=== PATIENT | male | born 1980 | race Hispanic/Latino ===

== ENCOUNTER 2020-05-06 16:10 | Emergency (ER) | payer BC, OTHER ==
--- NOTE | 2020-05-06 17:10 | RAD REPORT ---
EXAM DESCRIPTION: Mariely Single View05/06/2020 4:55 pm CLINICAL HISTORY: Cough COMPARISON: 2014 FINDINGS: Mild left basilar opacities. Right lung appears clear. . The heart is normal size IMPRESSION: Mild left basilar opacities probably pneumonia
--- NOTE | 2020-05-06 17:45 | EDPHYS ---
Physician Documentation [facility] Name: Ramiro Yanez Age: 39 yrs Sex: Male : 1980 Arrival Date: 05/06/2020 Time: 16:12 Bed 27 Private MD: ED Physician Missael Norman HPI: 05/06 17:42 This 39 yrs old Male presents to ER via Ambulatory with complaints of snw Breathing Difficulty, COVID+. 17:42 The patient has shortness of breath with light activity. Onset: The symptoms/episode snw began/occurred gradually. Duration: The symptoms are continuous. Duration: The symptoms are continuous, and are steadily getting worse. Associated signs and symptoms: Pertinent positives: non-productive cough, fever. Severity of symptoms: At their worst the symptoms were moderate. The patient has not experienced similar symptoms in the past. dx CoVid 19 on . Historical: - Allergies: 16:23 No Known Allergies; ss - Home Meds: 16:23 None [Active]; ss - PMHx: 16:23 None; ss - PSHx: 16:23 None; ss - Immunization history:: Adult Immunizations up to date. - Social history:: Smoking status: Patient denies any tobacco usage or history of. ROS: 17:41 Eyes: Negative for injury, pain, redness, and discharge, ENT: Negative for injury, snw pain, and discharge, Neck: Negative for injury, pain, and swelling, Cardiovascular: Negative for chest pain, palpitations, and edema. 17:41 Back: Negative for injury and pain, : Negative for injury, bleeding, discharge, and swelling, MS/Extremity: Negative for injury and deformity, Skin: Negative for injury, rash, and discoloration, Neuro: Negative for headache, weakness, numbness, tingling, and seizure. 17:41 Constitutional: Positive for body aches, fever, malaise. 17:41 Respiratory: Positive for cough, shortness of breath. 17:41 Abdomen/GI: Positive for diarrhea. Exam: 17:41 Head/Face: Normocephalic, atraumatic. Eyes: Pupils equal round and reactive to light, snw extra-ocular motions intact. Lids and lashes normal. Conjunctiva and sclera are non-icteric and not injected. Cornea within normal limits. Periorbital areas with no swelling, redness, or edema. ENT: Nares patent. No nasal discharge, no septal abnormalities noted. Tympanic membranes are normal and external auditory canals are clear. Oropharynx with no redness, swelling, or masses, exudates, or evidence of obstruction, uvula midline. Mucous membranes moist. Neck: Trachea midline, no thyromegaly or masses palpated, and no cervical lymphadenopathy. Supple, full range of motion without nuchal rigidity, or vertebral point tenderness. No Meningismus. Chest/axilla: Normal chest wall appearance and motion. Nontender with no deformity. No lesions are appreciated. Cardiovascular: Regular rate and rhythm with a normal S1 and S2. No gallops, murmurs, or rubs. Normal PMI, no JVD. No pulse deficits. 17:41 Back: No spinal tenderness. No costovertebral tenderness. Full range of motion. Skin: Warm, dry with normal turgor. Normal color with no rashes, no lesions, and no evidence of cellulitis. MS/ Extremity: Pulses equal, no cyanosis. Neurovascular intact. Full, normal range of motion. Neuro: Awake and alert, GCS 15, oriented to person, place, time, and situation. Cranial nerves II-XII grossly intact. Motor strength 5/5 in all extremities. Sensory grossly intact. Cerebellar exam normal. Normal gait. 17:41 Constitutional: The patient appears alert, awake, anxious, uncomfortable. 17:41 Respiratory: the patient does not display signs of respiratory distress, Respirations: normal, Breath sounds: are clear throughout, incessant cough. 17:41 Abdomen/GI: Exam negative for Vital Signs: 16:19 Resp 19; Temp 98.8(TE); Pulse Ox 96% on R/A; Weight 117.93 kg; Height 5 ft. 10 in. ss (177.80 cm); Pain 0/10; 18:24 BP 128 / 70; Pulse 89; Resp 19; Temp 97.9(O); Pulse Ox 97% on R/A; Pain 0/10; ls4 16:19 Body Mass Index 37.31 (117.93 kg, 177.80 cm) MDM: 17:44 Patient medically screened. snw 18:10 Data reviewed: vital signs, nurses notes. Data interpreted: Pulse oximetry: on room air snw is 96 %. Interpretation: acceptable. Counseling: I had a detailed discussion with the patient and/or guardian regarding: the historical points, exam findings, and any diagnostic results supporting the discharge/admit diagnosis, radiology results, the need for outpatient follow up, to return to the emergency department if symptoms worsen or persist or if there are any questions or concerns that arise at home. 05/06 16:32 Order name: XRAY Chest (1 view); Complete Time: 17:15 ls4 Administered Medications: 17:52 Drug: Decadron 10 mg Route: IM; Site: right deltoid; ls4 17:58 Drug: Tussionex Pennkinetic ER 5 ml Route: PO; ls4 17:58 Drug: Zithromax 500 mg Route: PO; ls4 Disposition: 19:42 Co-signature as Attending Physician, Missael Norman MD I agree with the assessment and kdr plan of care. Disposition: 05/06/20 17:44 Discharged to Home. Impression: Pneumonia due to SARS-associated coronavirus. - Condition is Stable. - Discharge Instructions: Rehydration, Adult, COVID-19. - Prescriptions for Prednisone 20 mg Oral Tablet - take 2 tablet by ORAL route once daily for 5 days; 10 tablet. Albuterol Sulfate 90 mcg/actuation - inhale 1-2 puff by INHALATION route every 4-6 hours; 1 Inhaler. Zithromax 500 mg Oral Tablet - take 1 tablet by ORAL route once daily for 5 days; 5 tablet. - Medication Reconciliation Form, Thank You Letter, Antibiotic Education, Prescription Opioid Use form. - Follow up: Emergency Department; When: As needed; Reason: Worsening of condition. Follow up: Private Physician; When: 2 - 3 days; Reason: Recheck today's complaints, Continuance of care, Re-evaluation by your physician. - Notes: Zinc 100mg orally daily x 2 weeks, Tonic water 4-6 oz daily x 2 weeks, drinkwith a source of vitamin C Signatures: Dispatcher [employer] Missael Flores MD MD kdr Waters, Shelly, STITCHER HAND-C STITCHER [employer]-Csnw Joycelyn Villalba RN RN ss Marylou De La Cruz RN RN ls4 Corrections: (The following items were deleted from the chart) 16:39 16:36 Chest Single View+RAD.RAD.BRZ ordered. [facility] 18:26 17:44 05/06/2020 17:44 Discharged to Home. Impression: Pneumonia due to SARS-associated ls4 coronavirus. Condition is Stable. Forms are Medication Reconciliation Form, Thank You Letter, Antibiotic Education, Prescription Opioid Use. Follow up: Emergency Department; When: As needed; Reason: Worsening of condition. Follow up: Private Physician; When: 2 - 3 days; Reason: Recheck today's complaints, Continuance of care, Re-evaluation by your physician. snmiller
--- NOTE | 2020-05-06 17:45 | ER ---
Nurse's Notes [facility] Name: Ramiro Yanez Age: 39 yrs Sex: Male : 1980 Arrival Date: 05/06/2020 Time: 16:12 Bed 27 Private MD: Diagnosis: Pneumonia due to SARS-associated coronavirus Presentation: 05/06 16:19 Chief complaint: Patient states: Tested + for COVID-19 on Saturday. Pt is concerned ss because his SOB is getting worse and is unsure if what he is doing at home is appropriate for his treatment. Coronavirus screen:. Ebola Screen: Patient denies exposure to infectious person. Patient denies travel to an Ebola-affected area in the 21 days before illness onset. Initial Sepsis Screen: Does the patient meet any 2 criteria? No. Patient's initial sepsis screen is negative. Does the patient have a suspected source of infection? No. Patient's initial sepsis screen is negative. Risk Assessment: Do you want to hurt yourself or someone else? Patient reports no desire to harm self or others. Onset of symptoms was April 30, 2020. 16:19 Method Of Arrival: Ambulatory ss 16:19 Acuity: MARAL 4 ss Triage Assessment: 16:34 General: Appears in no apparent distress. Behavior is calm, cooperative. Pain: Denies ls4 pain. Respiratory: Reports shortness of breath at rest Onset: The symptoms/episode began/occurred gradually, the patient has mild shortness of breath. Historical: - Allergies: 16:23 No Known Allergies; ss - Home Meds: 16:23 None [Active]; ss - PMHx: 16:23 None; ss - PSHx: 16:23 None; ss - Immunization history:: Adult Immunizations up to date. - Social history:: Smoking status: Patient denies any tobacco usage or history of. Screenin:33 Abuse screen: Denies threats or abuse. Denies injuries from another. Nutritional ls4 screening: No deficits noted. Tuberculosis screening: No symptoms or risk factors identified. Fall Risk None identified. Assessment: 16:28 Cardiovascular: Denies chest pain, Rhythm is regular. Respiratory: Reports shortness of ls4 breath on exertion cough that is non-productive, dry, hacking, Airway is patent Respiratory effort is even, labored, Respiratory pattern is regular, Breath sounds are clear bilaterally. the patient has mild shortness of breath. Derm: Skin is intact, Skin is dry, Skin is pink, warm \T\ dry. 17:25 Reassessment: Patient appears in no apparent distress at this time. Patient and/or ls4 family updated on plan of care and expected duration. Pain level reassessed. Patient is alert, oriented x 3, equal unlabored respirations, skin warm/dry/pink. 18:26 Reassessment: Patient appears in no apparent distress at this time. Patient and/or ls4 family updated on plan of care and expected duration. Pain level reassessed. Patient is alert, oriented x 3, equal unlabored respirations, skin warm/dry/pink. Vital Signs: 16:19 Resp 19; Temp 98.8(TE); Pulse Ox 96% on R/A; Weight 117.93 kg; Height 5 ft. 10 in. ss (177.80 cm); Pain 0/10; 18:24 BP 128 / 70; Pulse 89; Resp 19; Temp 97.9(O); Pulse Ox 97% on R/A; Pain 0/10; ls4 16:19 Body Mass Index 37.31 (117.93 kg, 177.80 cm) ED Course: 16:12 Patient arrived in ED. ag5 16:22 Triage completed. ss 16:23 Arm band placed on right wrist. ss 16:24 Sona Pryor FNP-C is PHCP. snw 16:24 Missael Norman MD is Attending Physician. snw 16:31 Marylou De La Cruz RN is Primary Nurse. ls4 16:33 No apparent distress. ls4 16:33 Patient has correct armband on for positive identification. Bed in low position. Call ls4 light in reach. Side rails up X 1. Pulse ox on. NIBP on. Verbal reassurance given. 16:33 No provider procedures requiring assistance completed. Patient maintains SpO2 ls4 saturation greater than 95% on room air. 16:59 XRAY Chest (1 view) In Process Unspecified. EDMS 18:26 Patient did not have IV access during this emergency room visit. ls4 Administered Medications: 17:52 Drug: Decadron 10 mg Route: IM; Site: right deltoid; ls4 17:58 Drug: Tussionex Pennkinetic ER 5 ml Route: PO; ls4 17:58 Drug: Zithromax 500 mg Route: PO; ls4 Outcome: 17:44 Discharge ordered by MD. hernandes 18:26 Discharged to home ambulatory. ls4 18: Condition: good 18:26 Discharge instructions given to Instructed on Demonstrated understanding of 18:26 Patient left the ED. ls4 Signatures: Dispatcher [employer] EDMS Sona Pryor, FORESTRY CONSERVATION WORKER-C FORESTRY CONSERVATION WORKER-Csnw Joycelyn Villalba RN RN ss Stewart, Lisa, RN RN ls4 Flaco Santiago ag5 Corrections: (The following items were deleted from the chart) 18: 16:33 Respiratory: Airway is patent ls4 ls4 18:25 16:34 Respiratory: ls4 ls4
[2020-05-06] MEDS ORDERED: AZITHROMYCIN 250 MG TAB ONE (17:57)
[2020-05-06] MEDS ORDERED: HYDROCODONE/CHLORPHEN 5 ML/OSYR ONE (17:58)
[2020-05-06] MEDS ORDERED: dexAMETHasone 10 MG/ML VIAL ONE (17:58)
[2020-05-06 18:33] VITALS: BP 128/70; TEMP 97.9; O2SAT 97
== END 2020-05-06 18:26 | disposition home or self-care (01) ==
LOC: ER 16:10
DX: J12.81 Pneumonia due to SARS-associated coronavirus (principal)
CPT/HCPCS: 71045; 96372; 99284; J1100

== ENCOUNTER 2020-05-08 07:51 | Inpatient (IN) | payer BC, OTHER ==
[2020-05-08] MEDS ORDERED: dexAMETHasone 10 MG/ML VIAL ONE (08:40)
[2020-05-08] MEDS ORDERED: THIAMINE 200 MG/2 ML INJ ONE (08:40)
[2020-05-08] MEDS ORDERED: NA CHLORIDE 0.9% 2,000 ML ONE (08:41)
[2020-05-08] MEDS ORDERED: FOLIC ACID 5 MG/ML VIAL ONE (08:42)
[2020-05-08] MEDS ORDERED: CEFTRIAXONE/SWI 1gm 1 GM/10 ML SYR ONE (08:42)
[2020-05-08] MEDS ORDERED: ALBUTEROL INHALER 60 PUFF/8 GM IH ONE (08:42)
[2020-05-08] MEDS ORDERED: AZITHROMYCIN IV 500 MG in NA CHLORIDE 0.9% 250 ML IVPB ONE (09:00)
[2020-05-08] MEDS ORDERED: ZINC SULFATE 220 MG CAP PO ONE (09:00)
[2020-05-08 09:10] LABS: Absolute Lymphocytes (CBC) 1.2 K/uL (0.7-4.9); Basophils % 0.4 % (0-1.3); Hematocrit 44.1 % (39.6-49.0); Lymphocytes % 11.7 % (15.3-44.8); MPV 9.7 fL (7.6-11.3); RBC Red Blood Cell Count 4.83 M/uL (4.33-5.43)
--- NOTE | 2020-05-08 09:19 | ER ---
Nurse's Notes [facility] Name: Ramiro Yanez Age: 39 yrs Sex: Male : 1980 Arrival Date: 05/08/2020 Time: 07:52 Bed 6 Private MD: Diagnosis: Pneumonia due to other specified bacteria;SARS-associated coronavirus as the cause of diseases classified elsewhere-covid 19 positive;Other specified heart block-mobitz 2 Presentation: 05/08 07:53 Chief complaint: EMS states: Positive COVID test from here on Saturday. Pt woke with jl7 SOB. O2 90%, placed on non-rebreather and came up to 97%. Coronavirus screen: Patient reports a cough. Patient reports shortness of breath or difficulty breathing. Patient denies measured and/or subjective temperature greater than 100.4F prior to today's visit. Patient denies travel on a cruise ship or to a country the [facility] [place] 2[place] currently lists as an affected area. Patient reports contact with known and/or suspected case of COVID-19. Patient instructed to continue to wear a mask when interacting with others. Patient moved to private room, placed in contact and droplet isolation with eye protection until further assessment. Ebola Screen: No symptoms or risks identified at this time. Initial Sepsis Screen: Does the patient meet any 2 criteria? No. Patient's initial sepsis screen is negative. Does the patient have a suspected source of infection? No. Patient's initial sepsis screen is negative. Risk Assessment: Do you want to hurt yourself or someone else? Patient reports no desire to harm self or others. Onset of symptoms was May 08, 2020. Care prior to arrival: None. Transition of care: patient was not received from another setting of care. 07:53 Method Of Arrival: EMS: [facility] 7 07:53 Acuity: MARAL 2 jl7 Triage Assessment: 07:57 General: Appears in no apparent distress. uncomfortable, Behavior is cooperative, jl7 anxious. Pain: Denies pain. Neuro: Level of Consciousness is awake, alert, obeys commands, Oriented to person, place, time, situation. Cardiovascular: Reports shortness of breath, Patient's skin is warm and dry. Respiratory: Reports shortness of breath at rest Onset: The symptoms/episode began/occurred this morning, the patient has moderate shortness of breath. GI: Derm: Skin is pink, warm \T\ dry. Historical: - Allergies: 07:57 No Known Allergies; - Home Meds: 07:57 None [Active]; jl7 - PMHx: 07:57 None; 7 - PSHx: 07:57 None; jl7 - Immunization history:: Adult Immunizations unknown. - Social history:: Smoking status: Patient denies any tobacco usage or history of. Screenin:00 Abuse screen: Denies threats or abuse. Denies injuries from another. Nutritional bp screening: No deficits noted. Tuberculosis screening: No symptoms or risk factors identified. Fall Risk None identified. Assessment: 08:00 General: SEE TRIAGE NOTE. bp 09:00 Cardiovascular: Rhythm is sinus rhythm. Respiratory: Reports shortness of breath cough bp that is Airway is patent Respiratory effort is even, unlabored, Breath sounds are coarse bilaterally. 09:30 Reassessment: HOSPITALIST AT B/S, ADMIT INITIATED. bp 10:39 Reassessment: REPEAT EKG COMPLETED. 2ND DEGREE AV BLOCK NOTED, MD NOTIFIED. bp 12:15 Reassessment: BED ASSIGNED, ADMIT ON HOLD FOR STAFFING. bp 13:11 Reassessment: ADMIT COMPLETE, PT HEYDI WITH PCT. bp Vital Signs: 07:53 BP 157 / 91; Pulse 99; Resp 26; Temp 99.6; Pulse Ox 100% on Non-rebreather mask; jl7 08:00 BP 148 / 89; Pulse 93; Resp 25; Pulse Ox 100% on 12% Non-rebreather mask; bp 09:00 BP 137 / 95; Pulse 96; Resp 24; Temp 98.2; Pulse Ox 100% ; bp 10:01 BP 133 / 81; Pulse 126; Resp 24; Pulse Ox 93% on 2 lpm NC; bp 11:00 BP 112 / 78; Pulse 79; Resp 23; Pulse Ox 98% on 2 lpm NC; bp 12:00 BP 111 / 67; Pulse 74; Resp 26; Pulse Ox 98% on 2 lpm NC; bp 12:52 BP 121 / 78; Pulse 78; Resp 24; Pulse Ox 96% on 2 lpm NC; 7 ED Course: 07:52 Patient arrived in ED. jl7 07:55 Osmel Reese, RN is Primary Nurse. bp 07:56 Triage completed. jl7 07:57 Arm band placed on right wrist. jl7 08:02 Elias Adams MD is Attending Physician. sergio 08:18 EKG done, by ED staff, reviewed by Elias Adams MD. mh5 08:19 Patient has correct armband on for positive identification. Placed in gown. Bed in low mh5 position. Call light in reach. Side rails up X 1. Pillow given. ekg monitor on. Pulse ox on. NIBP on. 08:50 Inserted saline lock: 20 gauge in right forearm, using aseptic technique. Blood bp collected. 09:17 Jorge Hennessy MD is Hospitalizing Provider. sergio 09:19 XRAY Chest (1 view) In Process Unspecified. EDMS 09:19 INCENTIVE SPIROMETRY Sent. bp 12:52 No provider procedures requiring assistance completed. Patient admitted, IV remains in jl7 place. intact, No redness/swelling at site. Administered Medications: 08:50 Drug: NS 0.9% 1000 ml Route: IV; Rate: 1 bolus; Site: right forearm; bp 11:14 Follow up: IV Status: Completed infusion; IV Intake: 1000ml bp 08:50 Drug: Decadron - Dexamethasone 10 mg Route: IVP; Site: right forearm; bp 09:38 Follow up: Response: Marked relief of symptoms bp 08:50 Drug: Rocephin 1 grams Route: IV; Rate: per protocol; Site: right forearm; bp 09:39 Follow up: IV Status: Completed infusion; IV Intake: 50ml bp 08:50 Drug: Albuterol HFA Inhaler 4 puffs Route: Inhalation; bp 08:50 Drug: Thiamine 100 mg Route: IV; Rate: per protocol; Site: right forearm; bp 09:39 Follow up: IV Status: Completed infusion; IV Intake: 50ml bp 08:50 Drug: foLIC Acid 1 mg Route: IVPB; Site: right forearm; bp 09:38 Follow up: IV Status: Completed infusion; IV Intake: 50ml bp 08:50 Drug: NS 0.9% 1000 ml Route: IV; Rate: 125 ml/hr; Site: right forearm; bp 11:14 Follow up: IV Status: Infusion continued upon admission bp 09:30 Drug: Zithromax 500 mg Route: IVPB; Infused Over: 1 hrs; Site: right forearm; bp 10:15 Follow up: IV Status: Completed infusion; IV Intake: 250ml bp 09:30 Drug: Zinc Sulfate 220 mg Route: PO; bp 09:41 Follow up: Response: No adverse reaction bp 09:30 Drug: Tussionex Pennkinetic ER 5 ml Route: PO; bp 09:40 Follow up: Response: Marked relief of symptoms bp 09:30 Drug: Lovenox 40 mg Route: Sub-Q; Site: right lower abdomen; bp 09:41 Follow up: Response: No adverse reaction bp 10:20 Drug: Pepcid 20 mg Route: IVP; Site: right forearm; bp 10:37 Follow up: Response: No adverse reaction bp Intake: 09:38 IV: 50ml; Total: 50ml. bp 09:39 IV: 50ml; Total: 100ml. bp 09:39 IV: 50ml; Total: 150ml. bp 10:15 IV: 250ml; Total: 400ml. bp 11:14 IV: 1000ml; Total: 1400ml. bp Outcome: 09:18 Decision to Hospitalize by Provider. sergio 13:10 Admitted to Tele accompanied by tech, via wheelchair, room 415, with oxygen, with bp chart, Report called to ASAF RODRIGUEZ 13:10 Condition: stable 13:10 Instructed on the need for admit. 13:26 Patient left the ED. bp Signatures: Dispatcher [employer] EDElias Stevenson MD MD cha Martinez, [facility] Burt Gupta, RN RN jl7 Osmel Reese RN RN bp Corrections: (The following items were deleted from the chart) 09:20 09:00 BP 137 / 95; Pulse 96bpm; Resp 24bpm; Pulse Ox 100%; bp bp
--- NOTE | 2020-05-08 09:19 | EDPHYS ---
Physician Documentation [facility] Name: Ramiro Yanez Age: 39 yrs Sex: Male : 1980 Arrival Date: 05/08/2020 Time: 07:52 Bed 6 Private MD: ED Physician Elias Adams HPI: 05/08 08:20 This 39 yrs old Male presents to ER via EMS with complaints of Shortness Of sergio Breath, COVID +. 08:20 The patient has shortness of breath at rest, with light activity. Onset: The sergio symptoms/episode began/occurred 3 day(s) ago. Duration: The symptoms are continuous, and are steadily getting worse. The patient's shortness of breath is aggravated by coughing, exertion, light activity. Associated signs and symptoms: Pertinent positives: non-productive cough. Severity of symptoms: At their worst the symptoms were moderate in the emergency department the symptoms are unchanged. The patient has experienced a previous episode, last week. Historical: - Allergies: 07:57 No Known Allergies; jl7 - Home Meds: 07:57 None [Active]; jl7 - PMHx: 07:57 None; jl7 - PSHx: 07:57 None; jl7 - Immunization history:: Adult Immunizations unknown. - Social history:: Smoking status: Patient denies any tobacco usage or history of. ROS: 08:23 Eyes: Negative for injury, pain, redness, and discharge, ENT: Negative for injury, sergio pain, and discharge, Neck: Negative for injury, pain, and swelling, Cardiovascular: Negative for chest pain, palpitations, and edema, Abdomen/GI: Negative for abdominal pain, nausea, vomiting, diarrhea, and constipation, Back: Negative for injury and pain, : Negative for injury, bleeding, discharge, and swelling, MS/Extremity: Negative for injury and deformity, Skin: Negative for injury, rash, and discoloration, Neuro: Negative for headache, weakness, numbness, tingling, and seizure, Psych: Negative for depression, anxiety, suicide ideation, homicidal ideation, and hallucinations, Allergy/Immunology: Negative for hives, rash, and allergies, Endocrine: Negative for neck swelling, polydipsia, polyuria, polyphagia, and marked weight changes, Hematologic/Lymphatic: Negative for swollen nodes, abnormal bleeding, and unusual bruising. 08:23 Constitutional: Positive for body aches, chills, fatigue, fever, malaise, poor PO intake. 08:23 Respiratory: Positive for cough, shortness of breath, wheezing, expiratory. Exam: 08:23 Head/Face: Normocephalic, atraumatic. Eyes: Pupils equal round and reactive to light, sergio extra-ocular motions intact. Lids and lashes normal. Conjunctiva and sclera are non-icteric and not injected. Cornea within normal limits. Periorbital areas with no swelling, redness, or edema. ENT: Nares patent. No nasal discharge, no septal abnormalities noted. Tympanic membranes are normal and external auditory canals are clear. Oropharynx with no redness, swelling, or masses, exudates, or evidence of obstruction, uvula midline. Mucous membranes moist. Neck: Trachea midline, no thyromegaly or masses palpated, and no cervical lymphadenopathy. Supple, full range of motion without nuchal rigidity, or vertebral point tenderness. No Meningismus. Chest/axilla: Normal chest wall appearance and motion. Nontender with no deformity. No lesions are appreciated. Abdomen/GI: Soft, non-tender, with normal bowel sounds. No distension or tympany. No guarding or rebound. No evidence of tenderness throughout. Back: No spinal tenderness. No costovertebral tenderness. Full range of motion. Male : Normal genitalia with no discharge or lesions. Skin: Warm, dry with normal turgor. Normal color with no rashes, no lesions, and no evidence of cellulitis. MS/ Extremity: Pulses equal, no cyanosis. Neurovascular intact. Full, normal range of motion. Neuro: Awake and alert, GCS 15, oriented to person, place, time, and situation. Cranial nerves II-XII grossly intact. Motor strength 5/5 in all extremities. Sensory grossly intact. Cerebellar exam normal. Normal gait. Psych: Awake, alert, with orientation to person, place and time. Behavior, mood, and affect are within normal limits. 08:23 Cardiovascular: Rate: tachycardic, Rhythm: irregular, Pulses: Pulses are 4+ in bilateral radial, brachial, femoral, popliteal, posterior tibial and and dorsalis pedis arteries.. Heart sounds: normal, Edema: is not appreciated, JVD: is not appreciated. 08:26 Musculoskeletal/extremity: DVT Exam: No signs of deep vein thrombosis. no pain, no sergio swelling, no tenderness, negative Homans' sign noted on exam, no appreciated bluish discoloration, no erythema, no increased warmth. 08:28 ECG was reviewed by the Attending Physician. [facility] Vital Signs: 07:53 BP 157 / 91; Pulse 99; Resp 26; Temp 99.6; Pulse Ox 100% on Non-rebreather mask; jl7 08:00 BP 148 / 89; Pulse 93; Resp 25; Pulse Ox 100% on 12% Non-rebreather mask; bp 09:00 BP 137 / 95; Pulse 96; Resp 24; Temp 98.2; Pulse Ox 100% ; bp 10:01 BP 133 / 81; Pulse 126; Resp 24; Pulse Ox 93% on 2 lpm NC; bp 11:00 BP 112 / 78; Pulse 79; Resp 23; Pulse Ox 98% on 2 lpm NC; bp 12:00 BP 111 / 67; Pulse 74; Resp 26; Pulse Ox 98% on 2 lpm NC; bp 12:52 BP 121 / 78; Pulse 78; Resp 24; Pulse Ox 96% on 2 lpm NC; jl7 MDM: 08:02 Patient medically screened. [facility] 08:24 Differential diagnosis: asthma, Bronchitis CHF exacerbation, Chronic Obstructive sergio Pulmonary Disease obstructed airway, bronchitis, flu, URI, pneumonia, pulmonary edema, Pulmonary Embolism reactive airway disease. Antibiotic administration: Rocephin and Zithromax given. The patient's Wells Deep Vein Thrombosis Score was calculated as follows: Heart Rate >100 BPM (1.5 Pts) Total Score: 0-2 Pts- Low Risk. Differential Diagnosis: Obstructed Airway Bronchitis Influenza Upper Respiratory Infection Asthma Exacerbation Pneumonia. The patient's pulmonary embolism risk score was calculated as follows: the patients heart rate is greater than 100 beats per minute (1.5 Pts) Total Score: 0-2 points. This patient was found to be at low risk for a pulmonary embolism by using the Well's assessment criteria. Immunization status:. Data reviewed: vital signs, nurses notes, lab test result(s), EKG, radiologic studies, plain films. Data interpreted: child monitor: rate is 99 beats/min, rhythm is irregular, Pulse oximetry: on 100 % NRB is 100 %. Test interpretation: by ED physician or midlevel provider: ECG, plain radiologic studies. 09:15 Medication response: improved with inhalers, steroids, fluids, tylenol. ED course: pt sergio slightly improved, will admit dr fox. 05/08 08:20 Order name: Basic Metabolic Panel; Complete Time: 09:42 [facility] 05/08 08:20 Order name: CBC with Diff; Complete Time: 09:13 [facility] 05/08 08:20 Order name: LFT's; Complete Time: 09:42 [facility] 05/08 08:20 Order name: Magnesium; Complete Time: 09:42 [facility] 05/08 08:20 Order name: NT PRO-BNP; Complete Time: 09:42 [facility] 05/08 08:20 Order name: Troponin (emerg Dept Use Only); Complete Time: 09:42 [facility] 05/08 08:20 Order name: XRAY Chest (1 view) 05/08 08:20 Order name: Blood Culture Adult (2) 05/08 08:20 Order name: Lactate; Complete Time: 09:42 [facility] 05/08 08:20 Order name: Procalcitonin 05/08 08:20 Order name: Influenza Screen (a \T\ B); Complete Time: 09:42 [facility] 05/08 08:20 Order name: D-Dimer; Complete Time: 09:13 [facility] 05/08 09:13 Order name: INCENTIVE SPIROMETRY 05/08 08:20 Order name: EKG; Complete Time: 08:21 [facility] 05/08 08:20 Order name: Cardiac monitoring; Complete Time: 09:41 [facility] 05/08 08:20 Order name: EKG - Nurse/Tech; Complete Time: 08:22 [facility] 05/08 08:20 Order name: IV Saline Lock; Complete Time: 09:41 [facility] 05/08 10:38 Order name: EKG; Complete Time: 10:39 bp 05/08 08:20 Order name: Labs collected and sent; Complete Time: 09:41 [facility] 05/08 08:20 Order name: O2 Per Protocol; Complete Time: 08:22 [facility] 05/08 08:20 Order name: O2 Sat Monitoring; Complete Time: 08:22 [facility] 05/08 10:38 Order name: EKG - Nurse/Tech; Complete Time: 10:38 bp EC:28 Rhythm is irregular. QRS [place] is Normal. [place] interval is normal. QRS interval is normal. sergio QT interval is normal. No Q waves. T waves are Inverted. No ST changes noted. Clinical impression: NSR w/ Non-specific ST/T Changes and No evidence of ischemia. Interpreted by me. Reviewed by me. Administered Medications: 08:50 Drug: NS 0.9% 1000 ml Route: IV; Rate: 1 bolus; Site: right forearm; bp 11:14 Follow up: IV Status: Completed infusion; IV Intake: 1000ml bp 08:50 Drug: Decadron - Dexamethasone 10 mg Route: IVP; Site: right forearm; bp 09:38 Follow up: Response: Marked relief of symptoms bp 08:50 Drug: Rocephin 1 grams Route: IV; Rate: per protocol; Site: right forearm; bp 09:39 Follow up: IV Status: Completed infusion; IV Intake: 50ml bp 08:50 Drug: Albuterol HFA Inhaler 4 puffs Route: Inhalation; bp 08:50 Drug: Thiamine 100 mg Route: IV; Rate: per protocol; Site: right forearm; bp 09:39 Follow up: IV Status: Completed infusion; IV Intake: 50ml bp 08:50 Drug: foLIC Acid 1 mg Route: IVPB; Site: right forearm; bp 09:38 Follow up: IV Status: Completed infusion; IV Intake: 50ml bp 08:50 Drug: NS 0.9% 1000 ml Route: IV; Rate: 125 ml/hr; Site: right forearm; bp 11:14 Follow up: IV Status: Infusion continued upon admission bp 09:30 Drug: Zithromax 500 mg Route: IVPB; Infused Over: 1 hrs; Site: right forearm; bp 10:15 Follow up: IV Status: Completed infusion; IV Intake: 250ml bp 09:30 Drug: Zinc Sulfate 220 mg Route: PO; bp 09:41 Follow up: Response: No adverse reaction bp 09:30 Drug: Tussionex Pennkinetic ER 5 ml Route: PO; bp 09:40 Follow up: Response: Marked relief of symptoms bp 09:30 Drug: Lovenox 40 mg Route: Sub-Q; Site: right lower abdomen; bp 09:41 Follow up: Response: No adverse reaction bp 10:20 Drug: Pepcid 20 mg Route: IVP; Site: right forearm; bp 10:37 Follow up: Response: No adverse reaction bp Disposition: 05/08/20 09:18 Hospitalization ordered by Jorge Fox for Inpatient Admission. Preliminary diagnosis are Pneumonia due to other specified bacteria, SARS-associated coronavirus as the cause of diseases classified elsewhere - covid 19 positive, Other specified heart block - mobitz 2. - Bed requested for Telemetry/MedSurg (Inpatient). - Status is Inpatient Admission. bp - Condition is Fair. - Problem is an ongoing problem. - Symptoms have worsened. Signatures: Dispatcher [employer] EDMS Elias Adams MD MD cha Leal, Jahala, RN RN jl7 Osmel Reese RN RN Noemi White Corrections: (The following items were deleted from the chart) 10:02 09:18 Hospitalization Ordered by Jorge Fox MD for Inpatient Admission. Preliminary sergio diagnosis is Pneumonia due to other specified bacteria; SARS-associated coronavirus as the cause of diseases classified elsewhere - covid 19 positive. Bed requested for Telemetry/MedSurg (Inpatient). Status is Inpatient Admission. Condition is Fair. Problem is an ongoing problem. Symptoms have worsened. sergio 11:50 10:02 05/08/2020 09:18 Hospitalization Ordered by Jorge Fox MD for Inpatient eb Admission. Preliminary diagnosis is Pneumonia due to other specified bacteria; SARS-associated coronavirus as the cause of diseases classified elsewhere - covid 19 positive; Other specified heart block - mobitz 2. Bed requested for Telemetry/MedSurg (Inpatient). Status is Inpatient Admission. Condition is Fair. Problem is an ongoing problem. Symptoms have worsened. sergio 13:26 11:50 05/08/2020 09:18 Hospitalization Ordered by Jorge Fox MD for Inpatient bp Admission. Preliminary diagnosis is Pneumonia due to other specified bacteria; SARS-associated coronavirus as the cause of diseases classified elsewhere - covid 19 positive; Other specified heart block - mobitz 2. Bed requested for Telemetry/MedSurg (Inpatient). Status is Inpatient Admission. Condition is Fair. Problem is an ongoing problem. Symptoms have worsened. eb
[2020-05-08 09:26] LABS: ALT/SGPT 62 U/L (12-78); AST/SGOT 53 U/L (15-37); Albumin 3.3 g/dL (3.4-5.0); Alkaline Phosphatase 67 U/L (45-117); BUN Blood Urea Nitrogen 15 mg/dL (7-18); Bicarbonate 26 mmol/L (21-32); Bilirubin Direct 0.3 mg/dL (0-0.2); Bilirubin Total 0.7 mg/dL (0.2-1.0); Glucose Level 101 mg/dL (74-106); Magnesium 2.4 mg/dL (1.8-2.4); NT PRO-BNP 120 pg/mL (<125); Potassium 3.6 mmol/L (3.5-5.1); Protein, Total 8.5 g/dL (6.4-8.2); Sodium Level 140 mmol/L (136-145); Troponin (Emerg Dept Use Only) < 0.02 ng/mL (0.0-0.045)
[2020-05-08] MEDS ORDERED: HYDROCODONE/CHLORPHEN 5 ML/OSYR ONE (09:27)
[2020-05-08] MEDS ORDERED: FAMOTIDINE 20 MG/2 ML VIAL IV ONE (10:27)
[2020-05-08] MEDS ORDERED: ENOXAPARIN 40 MG/0.4 ML SQ ONE (10:27)
--- NOTE | 2020-05-08 10:45 | RAD REPORT ---
EXAM DESCRIPTION: Mariely Single View05/08/2020 9:19 am CLINICAL HISTORY: Shortness of breath COMPARISON: May 06 FINDINGS: Right lung base has become hazy No change in mild left basilar opacities Heart is normal size IMPRESSION: Right lung base has become hazy probably mild pneumonia No change mild left basilar opacities
--- NOTE | 2020-05-08 10:47 | P.HP ---
Certification for Inpatient Patient admitted to: Inpatient With expected LOS: >2 Midnights Patient will require the following post-hospital care: None Practitioner: I am a practitioner with admitting privileges, knowledge of patient current condition, hospital course, and medical plan of care. Services: Services provided to patient in accordance with Admission requirements found in Title 42 Section 412.3 of the Code of Federal Regulations <Francesco Espana - Last Filed: 05/08/20 10:41> Patient History Date of Service: 05/08/20 Primary Care Provider: none Reason for admission: Viral pneumonia with hypoxia History of Present Illness: 39-year-old otherwise healthy male presents emergency department for worsening shortness of breath. Patient reports that he was diagnosed with COVID earlier this week. Patient reports that he has a pulse oximeter has been checking his saturations daily at home. Patient reports that for last couple days his saturations have been around 92 93 but today with exertion has saturation drops into the 80s and he could not catch his breath. The patient presented the emergency department for shortness of breath. Patient's room air saturations are in the 80s and he was dyspneic and tachypneic. ED provider wishes to admit patient for further evaluation and management. When I saw the patient in the emergency room he was having a persistent dry cough, he is short of breath, dyspneic, tachypneic. Patient is tolerating nasal cannula 4 L at this time. Saturations are 92%. Also noted on monitor patient appeared to be an second-degree type 2 heart block. This is new for him had no previous knowledge. Patient be admitted for further evaluation and management. Will consult cardiology and pulmonology. - Past Medical/Surgical History Diabetic: No -: none -: none Psychosocial/ Personal History: Patient lives at home with his and children. - Family History Family History: Reviewed- Non-Contributory - Social History Smoking Status: Never smoker Alcohol use: Yes CD- Drugs: No Caffeine use: Yes Place of Residence: Home <Francesco Espana - Last Filed: 05/08/20 10:41> Date of Service: 05/08/20 <Krunal Hennessy - Last Filed: 05/08/20 11:32> Allergies No Known Drug Allergies Allergy (Unverified 11/05/14 12:31) Unknown Review of Systems General: Weakness, Malaise Respiratory: Cough, Dry, Shortness of Breath <Francesco Espana - Last Filed: 05/08/20 10:41> Physical Examination - Physical Exam General: Alert, In no apparent distress, Oriented x3 HEENT: Atraumatic, Normocephalic Neck: Supple, 2+ carotid pulse no bruit, No LAD, Without JVD or thyroid abnormality Respiratory: Diminished, Other (Coarse bilaterally) Cardiovascular: Normal S1 S2, Other (Appears to be in second-degree type 2 av block.), Irregular heart rate/rhythm Capillary refill: <2 Seconds Gastrointestinal: Normal bowel sounds, No tenderness Musculoskeletal: No tenderness Integumentary: No rashes Neurological: Normal gait, Normal speech, Normal strength at 5/5 x4 extr, Normal tone, Normal affect - Studies Laboratory Data (last 24 hrs) 05/08/20 08:50: WBC 9.8, Hgb 15.4, Hct 44.1, Plt Count 153 05/08/20 08:50: Sodium 140, Potassium 3.6, BUN 15, Creatinine 0.93, Glucose 101, Magnesium 2.4, Total Bilirubin 0.7, AST 53 H, ALT 62, Alkaline Phosphatase 67 Microbiology Data (last 24 hrs): 05/08/20 08:50 Nasopharnyx Influenza Type A Antigen Screen - Final 05/08/20 08:50 Nasopharnyx Influenza Type B Antigen Screen - Final <Francesco Espana - Last Filed: 05/08/20 10:41> - Studies Laboratory Data (last 24 hrs) 05/08/20 08:50: WBC 9.8, Hgb 15.4, Hct 44.1, Plt Count 153 05/08/20 08:50: Sodium 140, Potassium 3.6, BUN 15, Creatinine 0.93, Glucose 101, Magnesium 2.4, Total Bilirubin 0.7, AST 53 H, ALT 62, Alkaline Phosphatase 67 Microbiology Data (last 24 hrs): 05/08/20 08:50 Nasopharnyx Influenza Type A Antigen Screen - Final 05/08/20 08:50 Nasopharnyx Influenza Type B Antigen Screen - Final <Krunal Hennessy - Last Filed: 05/08/20 11:32> Assessment and Plan - Plan Assessment Acute respiratory failure with hypoxia secondary to bilateral COVID pneumonia New onset arrhythmia, suspect second-degree type 2 block. Plan Acute respiratory failure with hypoxia secondary to bilateral COVID pneumonia: Will continue with [facility] protocol, full anticoagulation with Lovenox 1 milligram/kilogram twice daily, Solu-Medrol 40 mg twice daily. Additional supplements per math protocol. Pulmonology has been consulted on this case. Will titrate oxygen delivery 2 saturations of approximately 90%. Appreciate further input from pulmonology. New onset arrhythmia, suspect second-degree type 2 block: Cardiology has been consulted on this case. Patient will remain on telemetry throughout this hospitalization. Full anticoagulation in place. Echocardiogram ordered. Appreciate further input from cardiology Discharge Plan: Home Plan to discharge in: 48 Hours - Advance Directives Does patient have a Living Will: No Does patient have a Durable POA for Healthcare: No - Code Status/Comfort Care Code Status Assessed: Yes (Patient is full code) Critical Care: No Time Spent Managing Pts Care (In Minutes): 55 <Francesco Espana - Last Filed: 05/08/20 10:41> Physician Review: Patient Assessed, Agree with Above Assessment and Plan Physician Review Additional Text: Patient was seen and examined and findings were discussed Agree with the assessment and plan as documented by the STU <Krunal Hennessy - Last Filed: 05/08/20 11:32>
[2020-05-08 13:33] VITALS: BMI 39.1
[2020-05-08] MEDS ORDERED: ONDANSETRON 4 MG/2 ML VIAL IV PRN (13:35)
[2020-05-08] MEDS ORDERED: POTASSIUM CL SA 10 MEQ TAB PO ONE (14:00)
[2020-05-08 14:03] LABS: C-Reactive Protein 7.41 mg/L (<3.00); Ferritin 595.2 ng/mL (26-388)
[2020-05-08] MEDS: ENOXAPARIN 120 MG/0.8 ML SYR SQ SCH (17:05)
--- NOTE | 2020-05-08 18:26 | P.CNS ---
Date of Consult: 05/08/20 Reason for Consult: henriquez virus pneumonia Primary Care Provider: none Chief Complaint: Viral pneumonia with hypoxia History of Present Illness: patient is 39 years of age admitted from the emergency department with worsening dyspnea he was diagnosed with henriquez virus about a week ago been declining a saturation since admission was admitted to the hospital saturations appeared to be satisfactory Allergies No Known Drug Allergies Allergy (Verified 05/08/20 16:51) Unknown Home Medications: NK [No Home Meds] 05/08/20 - Past Medical/Surgical History Diabetic: No -: none -: stitches on forehead -7 y.o -: elbow sx with 2 pins-14 y.o Psychosocial/ Personal History: Patient lives at home with his and children. - Family History Father History Unknown: Yes Mother Medical History: Diabetes - Social History Alcohol use: Yes CD- Drugs: No Caffeine use: Yes Place of Residence: Home Review of Systems Respiratory: Cough, Shortness of Breath Physical Examination Temp Pulse Resp BP Pulse Ox 97.7 F 78 20 137/87 94 05/08/20 16:00 05/08/20 16:00 05/08/20 16:00 05/08/20 16:00 05/08/20 16:00 General: Other ( examination deferred patient is in isolation) Laboratory Data (last 24 hrs) 05/08/20 08:50: WBC 9.8, Hgb 15.4, Hct 44.1, Plt Count 153 05/08/20 08:50: Sodium 140, Potassium 3.6, BUN 15, Creatinine 0.93, Glucose 101, Magnesium 2.4, Total Bilirubin 0.7, AST 53 H, ALT 62, Alkaline Phosphatase 67 - Problems (1) Coronavirus infection Current Visit: Yes Status: Acute Plan: patient is 39 years of age admitted with the henriquez virus infection presume r espiratory tract in involvement chest x-ray shows minimal changes sees CRP and ferritin levels are low normal white count. I agree with steroids possible discharge tomorrow patient is obese add vitamin-C continue with the high-dose steroids
[2020-05-08] MEDS: BUDESONIDE 0.5 MG/2 ML NEB NEB SCH (20:00)
[2020-05-08] MEDS: METHYLPREDNISOLONE 40 MG INJ IV SCH (21:06)
[2020-05-08] MEDS: ASCORBIC ACID 500 MG TABLET PO SCH (21:06)
[2020-05-08] MEDS: ATORVASTATIN 40 MG TAB PO SCH (21:07)
[2020-05-08] MEDS: THIAMINE 200 MG/2 ML INJ IVP SCH (21:07)
[2020-05-08] MEDS: MELATONIN 3 MG TABLET PO SCH (21:07)
[2020-05-08] MEDS: GUAIFENESIN/DM 5 ML UCUP PO PRN (22:47)
[2020-05-08] MEDS: ACETAMINOPHEN 500 MG TAB PO PRN (23:40)
[2020-05-09] MEDS: GUAIFENESIN/DM 5 ML UCUP PO PRN ×4 (04:14→20:54)
[2020-05-09] MEDS: ENOXAPARIN 120 MG/0.8 ML SYR SQ SCH ×2 (05:02→17:09)
--- NOTE | 2020-05-09 05:58 | EKG ---
Test Date: 2020-05-08 Test Time: 08:12:50 Rail Technician: KATRINA MEASUREMENT RESULTS: Intervals: Rate: 99 UT: 152 QRSD: 84 QT: 352 QTc: 451 [place]: P: 59 UT: 152 QRS: 33 T: 27 INTERPRETIVE STATEMENTS: Sinus rhythm with sinus arrhythmia with occasional premature ventricular complexes Nonspecific T wave abnormality Abnormal ECG Compared to ECG 11/05/2014 09:03:38 Ventricular premature complex(es) now present T-wave abnormality now present Electronically Signed On 05-09-20 05:57:04 CDT by Alexis Case
[2020-05-09 06:18] LABS: Basophils % 0.3 % (0-1.3); Hematocrit 45.1 % (39.6-49.0); Lymphocytes % 6.8 % (15.3-44.8); MPV 9.4 fL (7.6-11.3); RBC Red Blood Cell Count 4.86 M/uL (4.33-5.43)
[2020-05-09 06:37] LABS: BUN Blood Urea Nitrogen 16 mg/dL (7-18); Bicarbonate 24 mmol/L (21-32); Glucose Level 132 mg/dL (74-106); HDL Cholesterol 46 mg/dL (40-60); LDL Cholesterol, Calculated 98 (<130); Magnesium 2.9 mg/dL (1.8-2.4); Potassium 3.5 mmol/L (3.5-5.1); Sodium Level 140 mmol/L (136-145); Thyroid Stimulating Hormone 0.701 uIU/mL (0.360-3.740)
[2020-05-09] MEDS: THIAMINE 200 MG/2 ML INJ IVP SCH ×2 (07:40→20:35)
[2020-05-09] MEDS: ASCORBIC ACID 500 MG TABLET PO SCH ×3 (07:40→20:34)
[2020-05-09] MEDS: VITAMIN D 1000 UNIT TAB PO SCH (07:40)
[2020-05-09] MEDS: METHYLPREDNISOLONE 40 MG INJ IV SCH (07:40)
[2020-05-09] MEDS: ZINC SULFATE 220 MG CAP PO SCH (07:41)
[2020-05-09 07:46] LABS: Blood Morphology Comment NOT SEEN (NOT SEEN); Platelet Estimate ADEQ
[2020-05-09] MEDS: BUDESONIDE 0.5 MG/2 ML NEB NEB SCH ×3 (08:00→20:17)
[2020-05-09] MEDS ORDERED: THIAMINE 200 MG/2 ML INJ IVP SCH (09:00)
[2020-05-09] MEDS ORDERED: POTASSIUM 25 MEQ EFFERV TAB PO ONE (09:00)
[2020-05-09] MEDS: ENSURE ENLIVE 237 ML CAN PO SCH ×3 (09:07→20:37)
--- NOTE | 2020-05-09 09:49 | P.PN ---
Subjective Date of Service: 05/09/20 Primary Care Provider: none Chief Complaint: Viral pneumonia with hypoxia <Francesco Espana - Last Filed: 05/09/20 09:46> Date of Service: 05/09/20 <Krunal Hennessy - Last Filed: 05/09/20 15:21> Review of Systems 10-point ROS is otherwise unremarkable ENT: Nose Discharge Respiratory: Cough, Dry, Shortness of Breath <Francesco Espana - Last Filed: 05/09/20 09:46> Physical Examination - Vital Signs Temperature: 99.2 F Blood Pressure: 147/95 Pulse: 72 Respirations: 20 Pulse Ox (%): 97 - Physical Exam General: Alert, In no apparent distress, Oriented x3 HEENT: Atraumatic, Normocephalic Neck: Supple Respiratory: Diminished Cardiovascular: Normal pulses, Normal S1 S2 Capillary refill: <2 Seconds Gastrointestinal: Normal bowel sounds Integumentary: No breakdown, No tenderness/swelling Neurological: Normal speech, Normal strength at 5/5 x4 extr, Normal tone - Studies Microbiology Data (last 24 hrs): 05/08/20 08:50 Nasopharnyx Influenza Type A Antigen Screen - Final 05/08/20 08:50 Nasopharnyx Influenza Type B Antigen Screen - Final <Francesco Espana - Last Filed: 05/09/20 09:46> Assessment & Plan Discharge Plan: Home Plan to discharge in: 24 Hours - Code Status/Comfort Care Code Status Assessed: Yes (Patient is full code) Physician Review: Patient Assessed, Agree with Above Assessment and Plan Physician Review Additional Text: Assessment Acute respiratory failure with hypoxia secondary to bilateral COVID pneumonia New onset arrhythmia, suspect second-degree type 2 block. Plan Acute respiratory failure with hypoxia secondary to bilateral COVID pneumonia: Will continue with [facility] protocol, full anticoagulation with Lovenox 1 milligram/kilogram twice daily, had increased Solu-Medrol to 80 mg twice daily for pulmonology recommendations as patient is still symptomatic. Additional supplements per math protocol. Pulmonology has been consulted on this case. Will titrate oxygen delivery 2 saturations of approximately 90%. Appreciate further input from pulmonology. Possible discharge in the next 24-48 hr. New onset arrhythmia, suspect second-degree type 2 block: Cardiology has been consulted on this case. Patient will remain on telemetry throughout this hospi talization. Full anticoagulation in place. Echocardiogram ordered. Appreciate further input from cardiology who will see patient today. Critical Care: No Time Spent Managing Pts Care (In Minutes): 55 <Francesco Espana - Last Filed: 05/09/20 09:46> Physician Review Additional Text: Patient was seen and examined and findings were discussed Agree with the assessment and plan as documented by the STU <Krunal Hennessy - Last Filed: 05/09/20 15:21>
[2020-05-09] MEDS: ACETAMINOPHEN 500 MG TAB PO PRN (11:22)
[2020-05-09] MEDS ORDERED: FUROSEMIDE 20 MG/ 2ML VIAL IV ONE (12:53)
--- NOTE | 2020-05-09 12:54 | P.PN ---
Subjective Date of Service: 05/09/20 Primary Care Provider: none Chief Complaint: Respiratory failure Subjective: Improving (Patient is improving he is feeling better complaining of orthopnea) Review of Systems General: Weakness Respiratory: Shortness of Breath Physical Examination - Vital Signs Temperature: 99.6 F Blood Pressure: 141/104 Pulse: 80 Respirations: 24 Pulse Ox (%): 96 - Studies Microbiology Data (last 24 hrs): 05/08/20 08:50 Nasopharnyx Influenza Type A Antigen Screen - Final 05/08/20 08:50 Nasopharnyx Influenza Type B Antigen Screen - Final Assessment & Plan - Problems (Diagnosis) (1) Coronavirus infection Current Visit: Yes Status: Acute Plan: Patient admitted with respiratory failure his CRP is very low continue with steroid is 96% on 4 L possible discharge tomorrow on prednisone 20 b.i.d. including multi vitamins and anticoagulation his blood pressure is elevated I have added spironolactone Lasix and Norvasc patient's ferritin level is elevated Physician Review: Patient Assessed, Agree with Above Assessment and Plan
[2020-05-09] MEDS: AMLODIPINE 5 MG TAB PO SCH (13:13)
[2020-05-09] MEDS: SPIRONOLACTONE 25 MG TABLET PO SCH ×2 (13:13→20:37)
[2020-05-09] MEDS: ATORVASTATIN 40 MG TAB PO SCH (20:34)
[2020-05-09] MEDS: METHYLPREDNISOLONE 125 MG INJ IV SCH (20:35)
[2020-05-09] MEDS ORDERED: MELATONIN 5 MG TABLET PO ONE (20:58)
[2020-05-09] MEDS ORDERED: MELATONIN 3 MG TABLET PO SCH (21:00)
[2020-05-09] MEDS: MELATONIN 3 MG TABLET PO SCH (21:00)
[2020-05-10] MEDS: GUAIFENESIN/DM 5 ML UCUP PO PRN ×4 (03:02→20:21)
[2020-05-10] MEDS: ENOXAPARIN 120 MG/0.8 ML SYR SQ SCH ×2 (05:07→17:08)
[2020-05-10 06:04] LABS: Absolute Lymphocytes (CBC) 0.6 K/uL (0.7-4.9); Basophils % 0.2 % (0-1.3); Hematocrit 42.2 % (39.6-49.0); Lymphocytes % 4.3 % (15.3-44.8); MPV 9.4 fL (7.6-11.3)
[2020-05-10 06:05] LABS: BUN Blood Urea Nitrogen 21 mg/dL (7-18); Bicarbonate 23 mmol/L (21-32); Glucose Level 148 mg/dL (74-106); Magnesium 2.9 mg/dL (1.8-2.4); Potassium 3.8 mmol/L (3.5-5.1); Sodium Level 138 mmol/L (136-145)
[2020-05-10] MEDS: THIAMINE 200 MG/2 ML INJ IVP SCH ×2 (07:11→20:20)
[2020-05-10] MEDS: AMLODIPINE 5 MG TAB PO SCH (07:12)
[2020-05-10] MEDS: SPIRONOLACTONE 25 MG TABLET PO SCH ×2 (07:12→20:21)
[2020-05-10] MEDS: ASCORBIC ACID 500 MG TABLET PO SCH ×3 (07:12→20:21)
[2020-05-10] MEDS: VITAMIN D 1000 UNIT TAB PO SCH (07:12)
[2020-05-10] MEDS: METHYLPREDNISOLONE 125 MG INJ IV SCH ×2 (07:13→20:18)
[2020-05-10] MEDS: ENSURE ENLIVE 237 ML CAN PO SCH ×3 (07:13→20:17)
[2020-05-10] MEDS: ZINC SULFATE 220 MG CAP PO SCH (07:21)
--- NOTE | 2020-05-10 08:14 | ECHO ---
HEIGHT: 5 ft 9 in WEIGHT: 265 lb 0 oz DATE OF STUDY: 05/09/[address]: Francesco Espana NP 2-DIMENSIONAL: YES M.MODE: YES DOPPLER: YES COLOR FLOW: YES TDS: NO PORTABLE: NO DEFINITY: NO BUBBLE STUDY: NO DIAGNOSIS: NEW ONSET HEART BLOCK CARDIAC HISTORY: CATHERIZATION: NO SURGERY: NO PROSTHETIC VALVE: NO PACEMAKER: NO MEASUREMENTS (cm) DIASTOLIC (NORMALS) SYSTOLIC (NORMALS) IVSd 1.2 (0.6-1.2) LA Diam 3.1 (1.9-4.0) LVEF 54% LVIDd 5.2 (3.5-5.7) LVIDs 3.7 (2.0-3.5) %FS 28% LVPWd 1.2 (0.6-1.2) Ao Diam 2.7 (2.0-3.7) 2 DIMENSIONAL ASSESSMENT: RIGHT ATRIUM: NORMAL LEFT ATRIUM: NORMAL RIGHT VENTRICLE: NORMAL LEFT VENTRICLE: NORMAL TRICUSPID VALVE: NORMAL MITRAL VALVE: NORMAL PULMONIC VALVE: NORMAL AORTIC VALVE: NORMAL PERICARDIAL EFFUSION: NONE AORTIC ROOT: NORMAL LEFT VENTRICULAR WALL MOTION: NORMAL DOPPLER/COLOR FLOW: NORMAL COMMENTS: NORMAL LEFT VENTRICULAR EJECTION FRACTION 55-60%. NORMAL WALL MOTION. NORMAL STUDY. TECHNOLOGIST: DENISE
[2020-05-10] MEDS ORDERED: POTASSIUM CL SA 10 MEQ TAB PO ONE (09:00)
[2020-05-10 09:03] LABS: Blood Morphology Comment NOT SEEN (NOT SEEN); Platelet Estimate ADEQ; Urine White Blood Cell Casts OK
[2020-05-10] MEDS: BUDESONIDE 0.5 MG/2 ML NEB NEB SCH (09:53)
[2020-05-10 10:57] LABS: C.diff Antigen/Toxin Ag neg : Tox neg (NEG : NEG)
[2020-05-10] MEDS ORDERED: ALPRAZOLAM 0.5 MG TABLET PO PRN (11:12)
--- NOTE | 2020-05-10 11:43 | P.PN ---
Subjective Date of Service: 05/10/20 Primary Care Provider: none Chief Complaint: Respiratory failure Subjective: New changes (Continues having difficulty breathing. Requiring more O2 support.) Review of Systems General: Other (Continued short of breath with significant dyspnea on exertion. ), As per HPI Eyes: Unremarkable ENT: Unremarkable Respiratory: Shortness of Breath, SOB with Excertion Cardiovascular: Unremarkable Gastrointestinal: Unremarkable Genitourinary: Unremarkable Musculoskeletal: Unremarkable Integumentary: Unremarkable Neurological: Unremarkable Physical Examination - Vital Signs Temperature: 99.3 F Blood Pressure: 149/94 Pulse: 81 Respirations: 20 Pulse Ox (%): 95 - Physical Exam General: Alert, In no apparent distress, Oriented x3 HEENT: Atraumatic, Normocephalic, PERRLA Neck: Supple, Other (Trachea midline) Respiratory: Diminished, Other (Having difficulty maintaining O2 saturations above 90% with minimal exertion.) Cardiovascular: No edema, Normal pulses, Regular rate/rhythm, Normal S1 S2 Gastrointestinal: Normal bowel sounds, Soft and benign, Non-distended Musculoskeletal: No clubbing, No swelling, No contractures Integumentary: No rashes, No breakdown, No significant lesion Neurological: Normal gait, Normal speech, Normal strength at 5/5 x4 extr, Normal tone Other Physical/Emotional Findings: Lives at home with family Assessment And Plan - Plan Assessment Acute respiratory failure with hypoxia secondary to bilateral COVID pneumonia: New onset arrhythmia, suspect second-degree type 2 block: Plan Acute respiratory failure with hypoxia secondary to bilateral COVID pneumonia: Will continue with MATH protocol, full anticoagulation with Lovenox 1 milligram/kilogram twice daily, increased methylprednisone to 160 mg twice daily per pulmonology recommendations today. Patient continues to be symptomatic feel ing significantly short of breath with minimal exertion. Additional supplements per math protocol. Pulmonology following. Will follow recommendations. Will continue to wean patient down to 4 L nasal cannula as much as possible. Once achieved patient can be discharged home on home oxygen. Possible discharge in the next 48-72 hr. New onset arrhythmia, suspect second-degree type 2 block: Cardiology has been consulted on this case. Patient will remain on telemetry throughout this hospitalization. Full anticoagulation in place. Echocardiogram complete showing normal EF. Normal echocardiogram. Will await further recommendations from Cardiology. Patient is stable and on telemetry, Discharge Plan: Home Plan to discharge in: 72 Hours - Code Status/Comfort Care Code Status Assessed: Yes Physician Review: Patient Assessed, Agree with Above Assessment and Plan Physician Review Additional Text: Patient was seen and examined and findings were discussed Agree with the assessment and plan as documented by the STU
--- NOTE | 2020-05-10 16:33 | P.PN ---
Subjective Date of Service: 05/10/20 Primary Care Provider: none Chief Complaint: Respiratory failure Subjective: Improving (Improving is still complaining of orthopnea) Physical Examination - Vital Signs Temperature: 98.9 F Blood Pressure: 138/68 Pulse: 87 Respirations: 21 Pulse Ox (%): 98 - Physical Exam Other Physical/Emotional Findings: Lives at home with family Assessment & Plan - Problems (Diagnosis) (1) Coronavirus infection Current Visit: Yes Status: Acute Plan: Respiratory failure CRP level has gone up agree with increasing steroids trial of BiPAP white count is declining blood pressure is under control anti he is on nasal cannula oxygen plan to ambulate set up home oxygen in possible discharge Physician Review: Patient Assessed, Agree with Above Assessment and Plan
[2020-05-10] MEDS: ATORVASTATIN 40 MG TAB PO SCH (20:21)
[2020-05-10] MEDS ORDERED: MELATONIN 5 MG TABLET PO SCH (21:00)
[2020-05-11] MEDS: GUAIFENESIN/DM 5 ML UCUP PO PRN ×2 (04:45→11:21)
[2020-05-11] MEDS: ENOXAPARIN 120 MG/0.8 ML SYR SQ SCH ×2 (05:05→16:58)
[2020-05-11 05:41] LABS: Absolute Lymphocytes (CBC) 0.7 K/uL (0.7-4.9); Basophils % 0.2 % (0-1.3); Hematocrit 41.5 % (39.6-49.0); Lymphocytes % 6.9 % (15.3-44.8); MPV 9.1 fL (7.6-11.3); RBC Red Blood Cell Count 4.52 M/uL (4.33-5.43)
[2020-05-11 05:57] LABS: BUN Blood Urea Nitrogen 24 mg/dL (7-18); Bicarbonate 23 mmol/L (21-32); Glucose Level 166 mg/dL (74-106); Magnesium 2.9 mg/dL (1.8-2.4); Potassium 3.8 mmol/L (3.5-5.1); Sodium Level 139 mmol/L (136-145)
[2020-05-11] MEDS: AMLODIPINE 5 MG TAB PO SCH (08:18)
[2020-05-11] MEDS: SPIRONOLACTONE 25 MG TABLET PO SCH (08:18)
[2020-05-11] MEDS: ASCORBIC ACID 500 MG TABLET PO SCH ×2 (08:18→13:06)
[2020-05-11] MEDS: VITAMIN D 1000 UNIT TAB PO SCH (08:18)
[2020-05-11] MEDS: ZINC SULFATE 220 MG CAP PO SCH (08:18)
[2020-05-11] MEDS: ENSURE ENLIVE 237 ML CAN PO SCH ×2 (08:19→13:06)
[2020-05-11] MEDS: METHYLPREDNISOLONE 125 MG INJ IV SCH (08:19)
[2020-05-11] MEDS: THIAMINE 200 MG/2 ML INJ IVP SCH (08:20)
[2020-05-11] MEDS ORDERED: POTASSIUM CL SA 10 MEQ TAB PO ONE (09:00)
[2020-05-11 13:02] VITALS: BP 147/80; TEMP 98.2
--- NOTE | 2020-05-11 13:13 | P.PN ---
Subjective Date of Service: 05/11/20 Primary Care Provider: none Chief Complaint: Respiratory failure Subjective: Improving ( patient is doing much better he is now sitting upright conversing) Physical Examination - Vital Signs Temperature: 98.2 F Blood Pressure: 147/80 Pulse: 91 Respirations: 18 Pulse Ox (%): 91 - Physical Exam Other Physical/Emotional Findings: Lives at home with family Assessment & Plan - Problems (Diagnosis) (1) Coronavirus infection Current Visit: Yes Status: Acute Plan: patient admitted with respiratory failure secondary to coronal virus he is doing much better labs reviewed is white count is normal CRP is declined significantly on 4 L is 91% probably stable for discharge she will require home oxygen prednisone 20 mg b.i.d. for a week in addition to the vitamin supplement as per protocol and low-dose anticoagulation for at least a couple of weeks follow-up with me telephone visit in a week Physician Review: Patient Assessed, Agree with Above Assessment and Plan
--- NOTE | 2020-05-11 14:54 | RAD REPORT ---
EXAM DESCRIPTION: RAD - Chest Single View - 05/11/2020 2:36 pm CLINICAL HISTORY: pneumonia, COVID pneumonia COMPARISON: Portable May 08 TECHNIQUE: AP portable chest image was obtained 05/11/2020 2:36 pm . FINDINGS: Lung volumes are low. Hazy airspace opacification is present in both lung torres similar t o comparison. The prior study had motion degradation which limits accurate comparison. Cardiac silhouette has decreased in prominence. No abnormal vascular engorgement. No measurable pleu ral effusion and no pneumothorax. No acute bony abnormality seen. No acute aortic findings suspected. IMPRESSION: Bilateral pneumonia changes are present not substantially different from comparison.
--- NOTE | 2020-05-11 15:57 | P.PN ---
Subjective Date of Service: 05/11/20 Primary Care Provider: none Chief Complaint: Respiratory failure Subjective: Tolerating diet, Improving, Doing well <Danial Moody - Last Filed: 05/11/20 15:51> Date of Service: 05/11/20 <Krunal Hennessy - Last Filed: 05/11/20 16:36> Review of Systems General: Unremarkable Eyes: Unremarkable ENT: Unremarkable Respiratory: Cough, Shortness of Breath Cardiovascular: Unremarkable Gastrointestinal: Unremarkable Genitourinary: Unremarkable Musculoskeletal: Unremarkable Integumentary: Unremarkable Neurological: Unremarkable <Danial Moody - Last Filed: 05/11/20 15:51> Physical Examination - Vital Signs Temperature: 98.2 F Blood Pressure: 147/80 Pulse: 91 Respirations: 18 Pulse Ox (%): 91 - Physical Exam General: Alert, In no apparent distress, Oriented x3, Cooperative HEENT: Atraumatic, Normocephalic, PERRLA Neck: Supple, No Thyromegaly, Other (Trachea midline) Respiratory: Diminished Cardiovascular: No edema, Normal pulses, Normal S1 S2 Capillary refill: <2 Seconds Gastrointestinal: Normal bowel sounds, Soft and benign, Non-distended Musculoskeletal: No clubbing, No swelling, No contractures, No erythema Integumentary: No breakdown, No significant lesion, No tenderness/swelling Neurological: Normal speech, Normal strength at 5/5 x4 extr, Normal tone Other Physical/Emotional Findings: Lives at home with family <Danial Moody - Last Filed: 05/11/20 15:51> Assessment And Plan - Plan Assessment Acute respiratory failure with hypoxia secondary to bilateral COVID pneumonia: New onset arrhythmia, suspect second-degree type 2 block: Plan Acute respiratory failure with hypoxia secondary to bilateral COVID pneumonia: Will continue with Amiare protocol, full anticoagulation with Lovenox 1 milligram/kilogram twice daily, continue methylprednisone to 160 mg twice daily per pulmonology recommendations. We will trend CRP. Patient's oxygen saturati ons are 91 and 93% on 4 L nasal cannula. Improved from yesterday. Additional supplements per math protocol. Pulmonology following. Will continue to wean patient off of O2 as much as possible. Patient will likely require home oxygen at discharge. Case management has sent all information. Awaiting response. Patient is clinically stable to be discharged once oxygen has been arranged. New onset arrhythmia, suspect second-degree type 2 block: Cardiology has been consulted on this case. Patient will remain on telemetry throughout this hospitalization. Full anticoagulation in place. Echocardiogram complete showing normal EF, Normal echocardiogram. Will continue medications of amlodipine, and spironolactone. Patient continued stable and on telemetry. No abnormal rhythms noted on telemetry so far. Discharge Plan: Home Plan to discharge in: 48 Hours - Code Status/Comfort Care Code Status Assessed: Yes Physician Review: Patient Assessed, Agree with Above Assessment and Plan Physician Review Additional Text: Patient was seen and examined and findings were discussed Agree with the assessment and plan as documented by the STU Time Spent Managing PTS Care (In Minutes): 55 <Danial Moody - Last Filed: 05/11/20 15:51>
--- NOTE | 2020-05-11 16:25 | P.PN ---
Subjective Date of Service: 05/11/20 Primary Care Provider: none Chief Complaint: Respiratory failure Subjective: Improving (Patient is improving doing much better) Review of Systems General: Weakness Respiratory: Shortness of Breath Physical Examination - Vital Signs Temperature: 98.2 F Blood Pressure: 147/80 Pulse: 91 Respirations: 18 Pulse Ox (%): 91 - Physical Exam Other Physical/Emotional Findings: Lives at home with family Assessment & Plan - Problems (Diagnosis) (1) Coronavirus infection Current Visit: Yes Status: Acute Plan: Patient is doing much better clinically improving CRP is down home down to 11 continue with high-dose steroids non nasal cannula oxygen possible discharge tomorrow echocardiogram is normal discharge on prednisone 20 b.i.d. for a week in addition to supplements and a low-dose anticoagulation as per protocol Physician Review: Patient Assessed, Agree with Above Assessment and Plan
--- NOTE | 2020-05-11 16:39 | P.DS ---
Admission Date: 05/08/20 Discharge Date: 05/11/20 Primary Care Provider: none Reason for Admission: Respiratory failure Consultations: [facility]-pulmonology Brief History of Present Illness: 39-year-old otherwise healthy male presents emergency department for worsening shortness of breath. Patient reports that he was diagnosed with COVID earlier this week. Patient reports that he has a pulse oximeter has been checking his saturations daily at home. Patient reports that for last couple days his saturations have been around 92 93 but today with exertion has saturation drops into the 80s and he could not catch his breath. The patient presented the emergency department for shortness of breath. Patient's room air saturations are in the 80s and he was dyspneic and tachypneic. ED provider wishes to admit patient for further evaluation and management. When I saw the patient in the emergency room he was having a persistent dry cough, he is short of breath, dyspneic, tachypneic. Patient is tolerating nasal cannula 4 L at this time. Saturations are 92%. Also noted on monitor patient appeared to be an second-degree type 2 heart block. This is new for him had no previous knowledge. Patient be admitted for further evaluation and management. Will consult cardiology and pulmonology. Hospital Course: During this hospital course patient was admitted for worsening shortness of br eath secondary to coronavirus. Patient was requiring significant O2 support. He was treated using the Math protocol. Pulmonology was consulted. Patient tolerated therapy well. His CRP has trended down. He required significant IV methylprednisolone at 160 mg b.i.d. since yesterday. Patient is off BiPAP in currently on 4 L nasal cannula. He has home oxygen arranged and can be discharged home on oral steroids, and supplemental anticoagulation and vitamins per MATH protocol. Also instructed to follow up with Dr. Tavarez in 1 week. This will likely be a telephone call follow-up. <Danial Moody - Last Filed: 05/11/20 16:39> Admission Date: 05/08/20 Discharge Date: 05/11/20 <Krunal Hennessy - Last Filed: 05/11/20 18:12> Disposition: ROUTINE DISCHARGE Discharge Condition: GOOD Vital Signs/Physical Exam: Temp Pulse Resp BP Pulse Ox 98.2 F 91 H 18 147/80 H 91 05/11/20 16:25 05/11/20 16:25 05/11/20 16:25 05/11/20 16:25 05/11/20 16:25 General: Alert, In no apparent distress, Oriented x3 HEENT: Atraumatic, Normocephalic, PERRLA Neck: Supple, No Thyromegaly, Other (Trachea midline) Respiratory: Clear to auscultation bilaterally, Diminished Cardiovascular: Normal pulses, Normal S1 S2 Capillary refill: <2 Seconds Gastrointestinal: Normal bowel sounds, Soft and benign, Non-distended Musculoskeletal: No clubbing, No swelling, No contractures, No erythema Integumentary: No rashes, No breakdown, No significant lesion Neurological: Normal gait, Normal speech, Normal strength at 5/5 x4 extr, Normal tone Other Physical/Emotional Findings: Lives at home with family Laboratory Data at Discharge: WBC 10.6 K/uL (4.3-10.9) D 05/11/20 05:08 Hgb 14.8 g/dL (13.6-17.9) 05/11/20 05:08 Hct 41.5 % (39.6-49.0) 05/11/20 05:08 Plt Count 258 K/uL (152-406) 05/11/20 05:08 Sodium 139 mmol/L (136-145) 05/11/20 05:08 Potassium 3.8 mmol/L (3.5-5.1) 05/11/20 05:08 BUN 24 mg/dL (7-18) H 05/11/20 05:08 Creatinine 0.82 mg/dL (0.55-1.3) 05/11/20 05:08 Glucose 166 mg/dL (74-106) H 05/11/20 05:08 Magnesium 2.9 mg/dL (1.8-2.4) H 05/11/20 05:08 Total Bilirubin 0.7 mg/dL (0.2-1.0) 05/08/20 08:50 AST 53 U/L (15-37) H 05/08/20 08:50 ALT 62 U/L (12-78) 05/08/20 08:50 Alkaline Phosphatase 67 U/L (45-117) 05/08/20 08:50 Triglycerides 130 mg/dL (<150) 05/09/20 05:58 Cholesterol 170 mg/dL (<200) 05/09/20 05:58 HDL Cholesterol 46 mg/dL (40-60) 05/09/20 05:58 Cholesterol/HDL Ratio 3.70 05/09/20 05:58 <Danial Moody - Last Filed: 05/11/20 16:39> Vital Signs/Physical Exam: Temp Pulse Resp BP Pulse Ox 98.2 F 91 H 18 147/80 H 91 05/11/20 16:25 05/11/20 16:25 05/11/20 16:25 05/11/20 16:25 05/11/20 16:25 Laboratory Data at Discharge: WBC 10.6 K/uL (4.3-10.9) D 05/11/20 05:08 Hgb 14.8 g/dL (13.6-17.9) 05/11/20 05:08 Hct 41.5 % (39.6-49.0) 05/11/20 05:08 Plt Count 258 K/uL (152-406) 05/11/20 05:08 Sodium 139 mmol/L (136-145) 05/11/20 05:08 Potassium 3.8 mmol/L (3.5-5.1) 05/11/20 05:08 BUN 24 mg/dL (7-18) H 05/11/20 05:08 Creatinine 0.82 mg/dL (0.55-1.3) 05/11/20 05:08 Glucose 166 mg/dL (74-106) H 05/11/20 05:08 Magnesium 2.9 mg/dL (1.8-2.4) H 05/11/20 05:08 Total Bilirubin 0.7 mg/dL (0.2-1.0) 05/08/20 08:50 AST 53 U/L (15-37) H 05/08/20 08:50 ALT 62 U/L (12-78) 05/08/20 08:50 Alkaline Phosphatase 67 U/L (45-117) 05/08/20 08:50 Triglycerides 130 mg/dL (<150) 05/09/20 05:58 Cholesterol 170 mg/dL (<200) 05/09/20 05:58 HDL Cholesterol 46 mg/dL (40-60) 05/09/20 05:58 Cholesterol/HDL Ratio 3.70 05/09/20 05:58 <Krunal Hennessy - Last Filed: 05/11/20 18:12> Patient Discharge Instructions: Please go over medications with patient. Have patient follow up with Dr. Tavarez in 1 week. Diet: Regular Activity: Ad nila Time spent managing pt's care (in minutes): 50 <Danial Moody - Last Filed: 05/11/20 16:39> Physician Review: Patient Assessed, Agree with Above Assessment and Plan <Krunal Hennessy - Last Filed: 05/11/20 18:12> Home Medications: Amlodipine [Norvasc*] 5 mg PO DAILY 30 Days #30 tab 05/11/20 Ascorbic Acid [Vitamin C*] 500 mg PO TID 14 Days #42 tablet 05/11/20 Atorvastatin Calcium [Lipitor] 40 mg PO BEDTIME 30 Days #30 tab 05/11/20 Guaif/Dm [Robitussin Dm*] 10 ml PO Q6H PRN 7 Days #1 ucup 05/11/20 Melatonin 10 mg PO BEDTIME 7 Days #14 tablet 05/11/20 Spironolactone [Aldactone*] 25 mg PO BID 30 Days #30 tab 05/11/20 Thiamine Mononitrate (Vit B1) [Cyto B-1] 200 gm PO DAILY 7 Days #14 powder 05/11/20 Zinc Sulfate [Zinc Sulfate*] 220 mg PO DAILY 14 Days #14 cap 05/11/20 predniSONE [Deltasone] 20 mg PO BID 7 Days #14 tab 05/11/20 New Medications: Spironolactone [Aldactone*] 25 mg PO BID 30 Days #30 tab Thiamine Mononitrate (Vit B1) [Cyto B-1] 200 gm PO DAILY 7 Days #14 powder Atorvastatin Calcium [Lipitor] 40 mg PO BEDTIME 30 Days #30 tab Melatonin 10 mg PO BEDTIME 7 Days #14 tablet Amlodipine [Norvasc*] 5 mg PO DAILY 30 Days #30 tab predniSONE [Deltasone] 20 mg PO BID 7 Days #14 tab Guaif/Dm [Robitussin Dm*] 10 ml PO Q6H PRN 7 Days #1 ucup PRN Reason: Cough Ascorbic Acid [Vitamin C*] 500 mg PO TID 14 Days #42 tablet Zinc Sulfate [Zinc Sulfate*] 220 mg PO DAILY 14 Days #14 cap Followup: Harvey Tavarez MD [ACTIVE - CAN ADMIT] - (call to schedule appointment)
[2020-05-11 17:01] VITALS: O2SAT 92
== END 2020-05-11 18:20 | disposition home or self-care (01) | DRG 177 ==
LOC: ER 07:51 → ERHOLD 10:30 → 4TH 13:10
PROVIDERS: ADMIT Family Medicine; ATTEND Family Medicine
PROC: 8E0ZXY6 Isolation (ICD-10-PCS; principal; 2020-05-08)
DX: U07.1 COVID-19 (principal); J12.89 Other viral pneumonia; J96.01 Acute respiratory failure with hypoxia; I49.9 Cardiac arrhythmia, unspecified; I44.1 Atrioventricular block, second degree
CPT/HCPCS: 36415; 71045; 80048; 80061; 80076; 82728; 83605; 83735; 83880; 84145; 84439; 84443; 84484; 85025; 85379; 86140; 87040; 87324; 87449; 87804; 93005; 93306; 96361; 96365; 96367; 96368; 96372; 96375; 99285; J0456; J0696; J1100; J1650; J1940; J2920; J2930; J3411; J7030; J7050